=== PATIENT | male | born 1985 | race Caucasian/White ===

== ENCOUNTER 2016-09-28 12:17 | Inpatient (IN) | payer OTHER ==
[~2016-09-28] VITALS: Ht 198.1 cm; Wt 103.2 kg
[~2016-09-28 12:17] MED LIST: LACTATED RINGER'S 1000 ML INJ 1,000 ML IV ONE; ONDANSETRON HCL 4 MG/2 ML VIAL IV PUSH ONE; PROPOFOL 200 MG/20 ML AMP IV ONE
[2016-09-28 12:42] VITALS: BP 134/77; PULSE 89; RESP 15; TEMP 98; O2SAT 99
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
[2016-09-28] MEDS ORDERED: SODIUM CHLORIDE 0.9% FLUSH 5 ML FLUSH IVF PRN ×2 (14:00→23:15)
[2016-09-28] MEDS ORDERED: MORPHINE SULFATE 4 MG/ML INJ IV PUSH ONE ×2 (14:00→18:00)
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
[2016-09-28 14:58] VITALS: BP 135/60; PULSE 106; RESP 18; O2SAT 98
[2016-09-28 15:12] LABS: AUTOMATED NEUTROPHIL # 11.6 TH/MM3 (1.8-7.7); BASOPHIL % 0.2 % (0.0-2.0); EOSINOPHIL % 0.1 % (0.0-4.0); HEMATOCRIT 41.6 % (39.0-51.0); HEMO FLAGS DIFF FINAL; LYMPH % 5.1 % (9.0-44.0); LYMPHOCYTE # 0.7 TH/MM3 (1.0-4.8); MEAN CELL VOLUME 86.2 FL (80.0-100.0); MEAN CORPUSCULAR HEMOGLOBIN 30.3 PG (27.0-34.0); MEAN CORPUSCULAR HGB CONC 35.2 % (32.0-36.0); MONO % 5.8 % (0.0-8.0); NEUT % 88.8 % (16.0-70.0); PLATELET COUNT 180 TH/MM3 (150-450); RED BLOOD COUNT 4.83 MIL/MM3 (4.50-5.90); RED CELL DISTRIBUTION WIDTH 12.7 % (11.6-17.2); WHITE BLOOD COUNT 13.1 TH/MM3 (4.0-11.0)
[2016-09-28 15:22] LABS: PROTHROMBIN TIME - PATIENT 10.8 SEC (9.8-11.6)
--- NOTE | 2016-09-28 16:00 | RADRPT ---
EXAM DATE/TIME: 09/28/2016 15:22 [facility] COMPARISON: No previous studies available for comparison. INDICATIONS : Evaluate for pneumonia, pneumothorax, or communicable diseases. MEDICAL HISTORY : None. SURGICAL HISTORY : None. ENCOUNTER: Initial ACUITY: 1 day PAIN SCORE: 0/10 LOCATION: chest FINDINGS: A single view of the chest demonstrates the lungs to be symmetrically aerated without evidence of mas s, infiltrate or effusion. The cardiomediastinal contours are unremarkable. Osseous structures are intact. CONCLUSION: No acute disease. Stevenson Houser MD FACR on September 28, 2016 at 15:58 Board Certified Radiologist. This report was verified electronically.
[2016-09-28 16:21] LABS: BICARBONATE 28.4 MEQ/L (21.0-32.0)
[2016-09-28 16:51] VITALS: BP 142/66; PULSE 87; RESP 16; O2SAT 99
[2016-09-28] MEDS ORDERED: GENTAMICIN SULFATE 80 MG/2 ML VIAL ONE ×2 (17:54→23:20)
[2016-09-28 19:00] VITALS: BP 147/81; PULSE 82; RESP 18; TEMP 97.3; O2SAT 99
[2016-09-28] MEDS ORDERED: INSULIN HUMAN REGULAR 1,000 UNITS/10 ML VIAL SQ PRN (20:30)
[2016-09-28] MEDS ORDERED: LACTATED RINGER'S 1000 ML IV SCH (20:30)
[2016-09-28] MEDS ORDERED: METOPROLOL TARTRATE 25 MG TAB PO PRN (20:30)
[2016-09-28] MEDS ORDERED: SODIUM CHLORID 0.9% 500 ML IV SCH (20:30)
[2016-09-28] MEDS ORDERED: HYDROmorphone HCL PF 1 MG/ML VIAL IV PRN (20:30)
[2016-09-28 21:50] VITALS: PULSE 73
[2016-09-28] MEDS ORDERED: NALOXONE HCL 0.4 MG/ML AMP IV PRN (23:15)
[2016-09-28] MEDS ORDERED: MISCELLANEOUS PHARMACY INFORMATION XX ONE (23:15)
[2016-09-28] MEDS ORDERED: MISCELLANEOUS NURSING INFORMATION XX PRN (23:15)
[2016-09-28] MEDS ORDERED: MAGNESIUM HYDROXIDE SUSP 30 ML CUP PO PRN (23:15)
[2016-09-28] MEDS ORDERED: Post-op Orders (for Pharmacy) MISC XX ONE (23:15)
[2016-09-28] MEDS ORDERED: diphenhydrAMINE HCL 25 MG CAP PO PRN (23:15)
[2016-09-28] MEDS ORDERED: ONDANSETRON HCL 4 MG/2 ML VIAL IVP PRN (23:15)
[2016-09-29] MEDS ORDERED: ceFAZolin INJ 1,000 MG VIAL IV ONE
[2016-09-29] MEDS ORDERED: MEPERIDINE HCL 25 MG/ML VIAL ONE (01:55)
--- NOTE | 2016-09-29 01:57 | PD.OP ---
Operative Report Date of Surgery: Sep 28, 2016 Preoperative Diagnosis: (1) Tibia/fibula fracture Postoperative Diagnosis: (1) Tibia/fibula fracture Procedure: ORIF Right tibial comminuted shaft plafond fracture Anesthesia: General Surgeon: Dr. Samuel Morin Clinical Research Specialist(s): ROSEANN Holman Operation and Findings: See Dictation Evens Estes Sep 29, 2016 01:56
[2016-09-29] MEDS: DEXT 5%-NACL 0.45% 1000 ML INJ 1,000 ML IV SCH ×3 (02:00→20:33)
[2016-09-29] MEDS ORDERED: fentaNYL CITRATE 250 MCG/5 ML AMP ONE (02:06)
[2016-09-29] MEDS ORDERED: MORPHINE SULFATE 8 MG/ML INJ ONE (02:09)
[2016-09-29] MEDS ORDERED: DO NOT ADM ANY ANTICOAGULANT DRUGS XX PRN (02:15)
[2016-09-29] MEDS: MORPHINE SULFATE 30 MG/30 ML PCA IV SCH ×2 (02:16→15:53)
[2016-09-29] MEDS ORDERED: MORPHINE SULFATE 4 MG/ML INJ ONE (02:30)
--- NOTE | 2016-09-29 03:05 | RADRPT ---
EXAM DATE/TIME: 09/29/2016 01:16 [facility] COMPARISON: No previous studies available for comparison. INDICATIONS : Open reduction internal fixation of the right tibia fracture. MEDICAL HISTORY : None. SURGICAL HISTORY : None. ENCOUNTER: Subsequent ACUITY: 1 day PAIN SCORE: Non-responsive. LOCATION: Right ankle FINDINGS: There are postsurgical changes with operative reduction and internal fixation of the previously seen fracture. The alignment is anatomic. CONCLUSION: Postsurgical changes as above. Richie Leonardo MD on September 29, 2016 at 3:04 Board Certified Radiologist. This report was verified electronically.
[2016-09-29 03:20] VITALS: BP 142/85; PULSE 95; RESP 17; TEMP 98.8; O2SAT 100
[2016-09-29] MEDS: PCA - TOTAL MG MORPHINE DELIVERED PER SHIFT SCH ×3 (06:00→22:00)
[2016-09-29 08:04] VITALS: BP 138/73; PULSE 84; RESP 18; TEMP 97.9; O2SAT 96
[2016-09-29 09:30] VITALS: O2SAT 94
[2016-09-29] MEDS: oxyCODONE/ACETAMINOPHEN 5 MG/325 MG TAB PO PRN ×3 (09:45→22:31)
[2016-09-29] MEDS: DOCUSATE SODIUM 50 MG/SENNA 8.6 MG TAB PO SCH ×2 (09:45→20:34)
[2016-09-29] MEDS: SODIUM CHLORIDE 0.9% FLUSH 5 ML FLUSH IVF SCH ×2 (09:46→20:35)
--- NOTE | 2016-09-29 11:19 | PD.ORT.PN ---
Subjective Subjective Remarks Patient comfortable. Pain controlled. Objective Vitals Vital Signs Date Time Temp Pulse Resp B/P Pulse Ox O2 Delivery O2 Flow Rate FiO2 09/29/16 09:30 94 21 09/29/16 08:04 97.9 84 18 138/73 96 09/29/16 06:00 18 09/29/16 03:20 98.8 95 17 142/85 100 09/29/16 03:00 17 09/29/16 02:50 99.8 85 16 99 Nasal Cannula 2 09/29/16 02:30 84 16 160/92 100 Nasal Cannula 2 09/29/16 02:16 14 09/29/16 02:15 95 14 160/91 100 Nasal Cannula 2 09/29/16 02:00 89 16 173/95 100 Nasal Cannula 2 09/29/16 01:54 99.1 107 18 175/88 100 Nasal Cannula 2 09/28/16 22:26 89 Nasal Cannula 2 09/28/16 21:50 98.6 81 12 151/79 97 09/28/16 21:50 73 09/28/16 19:00 97.3 82 18 147/81 99 09/28/16 16:54 20 09/28/16 16:51 87 16 142/66 99 Room Air 09/28/16 14:58 106 18 135/60 98 Room Air 09/28/16 12:42 98.0 89 15 134/77 99 I/O 09/28/16 09/28/16 09/28/16 09/29/16 09/29/16 09/29/16 07:00 15:00 23:00 07:00 15:00 23:00 Intake Total 0 ml 2068 ml Output Total 150 ml Balance 0 ml 1918 ml Intake Oral 0 ml 240 ml IV Total 1028 ml Other 800 ml Output Urine Total 0 ml Estimated Blood Loss 150 ml # Voids 1 0 # Bowel Movements 0 0 Result Diagram: 09/28/16 1445 09/28/16 1445 Other Results Laboratory Tests Test 09/28/16 14:45 Prothrombin Time 10.8 SEC (9.8-11.6) Prothromb Time International 1.0 RATIO Ratio Procedures ORIF Right tibial comminuted shaft plafond fracture Objective Remarks Right ankle splint and lelo wrap in place drainage note posterior aspect of splint + sensation good movement of toes Assessment & Plan Ortho Post Op Day #: 1 Problem List: Assessment and Plan Pain management - Percocet Physical therapy - non weight bearing to RLE Before discharge transition to a fracture boot D/C planning - anticipating home Monitor Evens Estes Sep 29, 2016 11:19
[2016-09-29 12:00] VITALS: BP 135/73; PULSE 84; RESP 18; TEMP 97; O2SAT 94
--- NOTE | 2016-09-29 13:28 | EKG ---
Date Performed: 09/28/2016 Time Performed: 15:30:28 PTAGE: 31 years EKG: Sinus rhythm WITH SHORT CA INTERVAL NONSPECIFIC T-WAVE ABNORMALITY BORDERLINE ECG NO PREVIOUS TRACING DOCTOR: Christian Love Interpretating Date/Time 09/29/2016 13:27:42
[2016-09-29 16:00] VITALS: BP 132/76; PULSE 84; RESP 18; TEMP 99.9; O2SAT 97
[2016-09-29 20:40] VITALS: BP 148/74; PULSE 90; RESP 17; TEMP 98.9; O2SAT 95
[2016-09-30 00:40] VITALS: BP 149/72; PULSE 96; RESP 17; TEMP 98.9; O2SAT 93
[2016-09-30 03:30] VITALS: BP 164/73; PULSE 75; RESP 18; TEMP 97.9; O2SAT 95
[2016-09-30] MEDS: DEXT 5%-NACL 0.45% 1000 ML INJ 1,000 ML IV SCH ×3 (05:13→21:24)
[2016-09-30] MEDS: PCA - TOTAL MG MORPHINE DELIVERED PER SHIFT SCH ×4 (06:00→21:25)
[2016-09-30] MEDS: oxyCODONE/ACETAMINOPHEN 5 MG/325 MG TAB PO PRN ×3 (06:32→20:20)
[2016-09-30] MEDS: MORPHINE SULFATE 30 MG/30 ML PCA IV SCH (06:37)
[2016-09-30 08:02] VITALS: BP 133/70; PULSE 93; RESP 16; TEMP 99.1; O2SAT 96
[2016-09-30] MEDS: SODIUM CHLORIDE 0.9% FLUSH 5 ML FLUSH IVF SCH ×2 (08:57→20:20)
[2016-09-30] MEDS: DOCUSATE SODIUM 50 MG/SENNA 8.6 MG TAB PO SCH ×2 (08:57→20:19)
[2016-09-30 12:25] VITALS: BP 127/72; PULSE 80; RESP 16; TEMP 98.1; O2SAT 95
--- NOTE | 2016-09-30 14:59 | PD.ORT.PN ---
Subjective Subjective Remarks Patient comfortable. Pain controlled. Objective Vitals Vital Signs Date Time Temp Pulse Resp B/P Pulse Ox O2 Delivery O2 Flow Rate FiO2 09/30/16 12:25 98.1 80 16 127/72 95 09/30/16 08:02 99.1 93 16 133/70 96 09/30/16 07:00 18 09/30/16 06:37 17 09/30/16 06:00 18 09/30/16 03:30 97.9 75 18 164/73 95 09/30/16 00:40 98.9 96 17 149/72 93 09/29/16 22:00 18 09/29/16 20:40 98.9 90 17 148/74 95 09/29/16 16:00 99.9 84 18 132/76 97 09/29/16 15:53 16 I/O 09/29/16 09/29/16 09/29/16 09/30/16 09/30/16 09/30/16 07:00 15:00 23:00 07:00 15:00 23:00 Intake Total 2068 ml 1480 ml 1456 ml 264 ml 480 ml Output Total 150 ml 750 ml Balance 1918 ml 1480 ml 1456 ml 264 ml -270 ml Intake Oral 240 ml 1480 ml 960 ml 480 ml IV Total 1028 ml 496 ml 264 ml Other 800 ml Output Urine Total 0 ml 750 ml Estimated Blood Loss 150 ml # Voids 0 7 5 # Bowel Movements 0 0 0 0 Result Diagram: 09/28/16 1445 09/28/16 1445 Procedures ORIF Right tibial comminuted shaft plafond fracture Objective Remarks Right ankle splint and lelo wrap in place drainage note posterior aspect of splint + sensation good movement of toes Assessment & Plan Assessment and Plan POD #2 Pain management - Percocet Physical therapy - non weight bearing to RLE Before discharge transition to a fracture boot D/C planning - anticipating home tomorrow Monitor Evens Estes Sep 30, 2016 14:59
[2016-09-30 16:00] VITALS: BP 134/72; PULSE 99; RESP 16; TEMP 97.6; O2SAT 96
[2016-09-30 20:00] VITALS: BP 145/84; PULSE 101; RESP 18; TEMP 96.7; O2SAT 97
[2016-10-01 00:25] VITALS: BP 139/69; PULSE 71; RESP 18; TEMP 96.1; O2SAT 96
[2016-10-01] MEDS: oxyCODONE/ACETAMINOPHEN 5 MG/325 MG TAB PO PRN ×3 (00:30→10:47)
[2016-10-01 04:20] VITALS: BP 139/69; PULSE 71; RESP 18; TEMP 96.1; O2SAT 96
--- NOTE | 2016-10-01 07:53 | PD.ORT.PN ---
Subjective Subjective Remarks Patient comfortable. Pain controlled. Objective Vitals Vital Signs Date Time Temp Pulse Resp B/P Pulse Ox O2 Delivery O2 Flow Rate FiO2 10/01/16 00:25 96.1 71 18 139/69 96 09/30/16 20:00 96.7 101 18 145/84 97 09/30/16 17:10 18 09/30/16 16:00 97.6 99 16 134/72 96 09/30/16 14:00 18 09/30/16 12:25 98.1 80 16 127/72 95 09/30/16 08:02 99.1 93 16 133/70 96 I/O 09/30/16 09/30/16 09/30/16 10/01/16 10/01/16 10/01/16 07:00 15:00 23:00 07:00 15:00 23:00 Intake Total 264 ml 1680 ml 600 ml 240 ml Output Total 750 ml 2150 ml Balance 264 ml 930 ml -1550 ml 240 ml Intake Oral 1680 ml 600 ml 240 ml IV Total 264 ml Output Urine Total 750 ml 2150 ml # Voids 5 1 # Bowel Movements 0 0 0 Result Diagram: 09/28/16 1445 09/28/16 1445 Procedures ORIF Right tibial comminuted shaft plafond fracture Objective Remarks Right ankle splint and lelo wrap in place drainage note posterior aspect of splint + sensation good movement of toes Assessment & Plan Assessment and Plan POD #3 Pain management - Percocet Physical therapy - non weight bearing to RLE Before discharge remove splint and dressings. Clean incision with alcohol and apply xeroform dressings. Apply fracture boot. Orthopedically stable for discharge D/C planning - home today F/U in office in 1.[address] Morin or Evens Martinez Oct 01, 2016 07:53
[2016-10-01] MEDS ORDERED: OXYC1TAB63 PO (07:55)
[2016-10-01 08:00] VITALS: BP 125/78; PULSE 90; RESP 20; TEMP 98.3; O2SAT 97
[2016-10-01] MEDS: DOCUSATE SODIUM 50 MG/SENNA 8.6 MG TAB PO SCH (08:54)
[2016-10-01] MEDS: SODIUM CHLORIDE 0.9% FLUSH 5 ML FLUSH IVF SCH (08:54)
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
[2016-10-01] MEDS: DEXT 5%-NACL 0.45% 1000 ML INJ 1,000 ML IV SCH (11:13)
[2016-10-01 12:00] VITALS: BP 122/68; PULSE 85; RESP 20; TEMP 98.3; O2SAT 97
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
== END 2016-10-01 15:39 | disposition home or self-care (01) | DRG 492 ==
LOC: NEPB 12:17 → NEDA 14:43 → N06B 18:23
PROVIDERS: ADMIT Orthopaedic Surgery Sports Medicine; ATTEND Orthopaedic Surgery Sports Medicine
PROC: 0QSG04Z Reposition Right Tibia with Internal Fixation Device, Open Approach (ICD-10-PCS; principal; 2016-09-28 23:35)
PROC: 0QSJ0ZZ Reposition Right Fibula, Open Approach (ICD-10-PCS; 2016-09-28 23:35)
DX: S82.301B Unspecified fracture of lower end of right tibia, initial encounter for open fracture type I or II (principal); S82.831B Other fracture of upper and lower end of right fibula, initial encounter for open fracture type I or II; V29.88XA Motorcycle rider (driver) (passenger) injured in other specified transport accidents, initial encounter
CPT/HCPCS: 71010; 73600; 73610; 76000; 80048; 85025; 85610; 85730; 93005; 94150; 99284; C1713; E0113; J0690; J1170; J1580; J2175; J2270; J2405; J3010; J7120; L2114